=== PATIENT | male | born 1940 ===

== ENCOUNTER 2016-11-15 17:40 | Emergency (ER) | payer MEDICARE, OTHER ==
[2016-11-15 17:42] VITALS: BP 131/84; PULSE 68; RESP 16; TEMP 98.2; O2SAT 100
[2016-11-15] MEDS ORDERED: Sodium Chloride 0.9% 500 ML IV STA (18:03)
--- NOTE | 2016-11-15 18:06 | ED PDOC ---
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 Denies falls but family states he has trouble walking when he gets dizzy. He has experienced similar symptoms for many years, takes meclizine and states has appt for MRI and neurologist coming up this summer. He states he has headaches occasionally. He and family deny changes in speech, strength or cognition. Of note he was Rx azithromycin and Albuterol HFA yesterday by PMD Dr Bailon, and he also takes flomax for BPH, states last took last night. He does not equate his dizziness to medication. Past Medical History Reviewed: Historical Data, Nursing Documentation, Vital Signs Vital Signs: Last Vital Signs Temp 98.2 F 11/15/16 17:41 Pulse 68 11/15/16 17:41 Resp 16 11/15/16 17:41 BP 131/84 11/15/16 17:41 Pulse Ox 100 11/15/16 17:41 - Medical History PMH: HTN, Hypercholesterolemia - Family History Family History: States: Unknown Family Hx - Living Arrangements Living Arrangements: With Family - Social History Current smoker - smoking cessation education provided: No Alcohol: None Drugs: Denies - Immunization History Hx Tetanus Toxoid Vaccination: No Hx Influenza Vaccination: No Hx Pneumococcal Vaccination: No - Home Medications Home Medications: Ambulatory Orders Medication Instructions Recorded Aspirin 10/30/14 Diovan 10/30/14 Meclizine HCl [Antivert/25] 25 mg PO TID PRN #30 tab 10/30/14 - Allergies Allergies/Adverse Reactions: Allergies Allergy/AdvReac Type Severity Reaction Status Date / Time No Known Allergies Allergy Verified 11/15/16 17:41 Review of Systems ROS Statement: Except As Marked, All Systems Reviewed And Found Negative Constitutional: Negative for: Fever, Chills Cardiovascular: Negative for: Chest Pain, Palpitations Respiratory: Negative for: Cough, Shortness of Breath Gastrointestinal: Positive for: Nausea. Negative for: Vomiting, Abdominal Pain Genitourinary Male: Negative for: Dysuria, Frequency Skin: Negative for: Rash, Lesions, Jaundice Neurological: Positive for: Dizziness. Negative for: Weakness, Numbness Psych: Negative for: Anxiety, Depression Physical Exam - Reviewed Nursing Documentation Reviewed: Yes Vital Signs Reviewed: Yes - Physical Exam Appears: Positive for: Well (hard of hearing azeri speaking), Non-toxic, No Acute Distress Head Exam: Positive for: ATRAUMATIC, NORMAL INSPECTION, NORMOCEPHALIC Skin: Positive for: Normal Color, Warm, DRY Eye Exam: Positive for: EOMI, Normal appearance, PERRL ENT: Positive for: Normal ENT Inspection, TM Is/Are (R hearing aid mild debris in canal no edema) Neck: Positive for: Normal, Painless ROM Cardiovascular/Chest: Positive for: Regular Rate, Rhythm Respiratory: Positive for: CNT, Normal Breath Sounds Gastrointestinal/Abdominal: Positive for: Bowel Sounds, Soft. Negative for: Tenderness Back: Positive for: Normal Inspection Extremity: Positive for: Normal ROM Neurologic/Psych: Positive for: Alert, Oriented, Cerebellar Tests (finger to nose intact). Negative for: health sciences dean II-XII, Motor/Sensory Deficits - Laboratory Results Result Diagrams: 11/15/16 18:10 11/15/16 18:10 - ECG O2 Sat by Pulse Oximetry: 100 Medical Decision Making Medical Decision Making: old chart reviewed, CT performed 2014 at [facility] for similar presentation. Will obtain bloodwork, initiate reglan which has worked in past. pt needs to discuss flomax w PMD as possible cause of intermittent dizziness. Disposition - Clinical Impression Clinical Impression: Dizziness - Patient ED Disposition Is Patient to be Admitted: Transfer of Care - Disposition Disposition: Transfer of Care Disposition Time: 18:48 Condition: STABLE Patient Signed Over To: Raz Chahal Handoff Comments: pending re-eval and dispo
[2016-11-15 18:14] LABS: BASO % 0.3 % (0.0-2.0); EOS % 0.2 % (0.0-4.0); HEMATOCRIT 41.5 % (35.0-51.0); LYMPH # 1.5 K/uL (1.0-4.3); LYMPH % 17.6 % (20.0-40.0); MEAN CELL VOLUME 90.2 fl (80.0-94.0); MEAN CORPUSCULAR HEMOGLOBIN 30.1 pg (27.0-31.0); MEAN CORPUSCULAR HGB CONC 33.4 g/dL (33.0-37.0); MEAN PLATELET VOLUME 7.1 fl (7.2-11.7); MONO # 0.6 K/uL (0.0-0.8); MONO % 7.7 % (0.0-10.0); NEUT # 6.1 K/uL (1.8-7.0); NEUT % 74.2 % (50.0-75.0); NRBC % 0.1 % (0.0-0.0); RED CELL DISTRIBUTION WIDTH 13.1 % (11.5-14.5); WHITE BLOOD COUNT 8.3 K/uL (4.8-10.8)
[2016-11-15 18:27] LABS: ALB/GLOB RATIO 1.4 (1.0-2.1); ALKALINE PHOSPHATASE 69 U/L (38-126); ALT/SGPT 25 U/L (21-72); AST/SGOT 26 U/L (17-59); BILIRUBIN,TOTAL 0.5 mg/dl (0.2-1.3); BLOOD UREA NITROGEN 19 mg/dl (9-20); CALCIUM 8.8 mg/dL (8.4-10.2); CARBON DIOXIDE 22 mmol/L (22-30); CHLORIDE 98 mmol/L (98-107); GFR AFRICAN-AMERICAN > 60; GLUCOSE,RANDOM 201 mg/dL (75-110); POTASSIUM 3.7 MMOL/L (3.6-5.0); SODIUM 133 mmol/l (132-148); TOTAL PROTEIN 7.3 G/DL (6.3-8.2)
[2016-11-15] MEDS ORDERED: Potassium Chloride 20 mEq ER Tab PO ONE ×2 (18:43→19:50)
--- NOTE | 2016-11-15 21:57 | ED PDOC ---
- Laboratory Results Result Diagrams: 11/15/16 18:10 11/15/16 18:10 - ECG O2 Sat by Pulse Oximetry: 100 Medical Decision Making Medical Decision MakinPM: Pt. was signed out to me by Dr. Gonzalez, pending reassessment and labwork. 8PM: Pt. still not feeling relief, patient having marked horizontal nystagmus on exam. Ordered 1mg ativan IV. 9PM: Pt. has significant improvement in symptoms. Son relates that father has been under stress recently, stares at his phone too much, and also stays in a non- air conditioned room which may have exacerbated his symptoms. Son will take father to his home tonight. Told to f/u w/ PMD in 1-2 days or return to ED for worsening or concerning symptoms. Disposition - Clinical Impression Clinical Impression: Dizziness - POA Present On Arrival: None - Disposition Disposition: Routine/Home Disposition Time: 21:00 Condition: IMPROVED Instructions: Dizziness (ED), Vertigo (ED) Print Language: VIETNAMESE
--- NOTE | 2016-11-16 11:54 | RAD ---
HISTORY: Cough. COMPARISON: No prior. TECHNIQUE: Chest PA and lateral FINDINGS: LUNGS: No active pulmonary disease. PLEURA: No significant pleural effusion identified. No pneumothorax apparent. CARDIOVASCULAR: Normal. OSSEOUS STRUCTURES: No significant abnormalities. VISUALIZED UPPER ABDOMEN: Normal. OTHER FINDINGS: None. IMPRESSION: No active disease.
--- NOTE | 2016-11-16 15:27 | CARD ---
APPROVED REPORT EKG Measurement Heart [id number] <Conclusion> Normal sinus rhythm Normal ECG
== END 2016-11-15 22:51 | disposition home or self-care (01) ==
LOC: H.ER 17:40
DX: R42 Dizziness and giddiness (principal); R11.0 Nausea; I10 Essential (primary) hypertension
CPT/HCPCS: 71020; 80053; 84484; 85025; 93005; 96374; 96375; 99285; J2060; J2765; J7040